=== PATIENT | female | born 2005 | race Two or more races ===

== ENCOUNTER 2024-02-07 18:47 | Emergency (ER) | payer OTHER ==
[~2024-02-07] VITALS: Ht 149.9 cm; Wt 44.5 kg
[2024-02-07] MEDS ORDERED: KETOROLAC TROMETHAMINE 30 MG VIAL IV ONE (20:00)
[2024-02-07] MEDS ORDERED: CEFTRIAXONE SODIUM 2,000 MG VIAL IV ONE (20:00)
== END 2024-02-07 22:08 | disposition home or self-care (01) ==
LOC: EMR PED 18:47
DX: S31.41XA Laceration without foreign body of vagina and vulva, initial encounter (principal); X58.XXXA Exposure to other specified factors, initial encounter; Y93.39 Activity, other involving climbing, rappelling and jumping off; Y92.89 Other specified places as the place of occurrence of the external cause; Y99.9 Unspecified external cause status